=== PATIENT | female | born 1960 | race Caucasian/White ===

== ENCOUNTER → 2018-02-07 09:00 | Outpatient (CLI) | payer BC, SELFPAY ==
--- NOTE | 2018-02-07 09:03 | RAD_ITS ---
STUDY: X-RAY - LEFT KNEE REASON FOR EXAM: Female, 57 years old. Bilateral knee pain. TECHNIQUE: 4 view(s) of the knee. COMPARISON: None. FINDINGS: Normal visualized distal femur. Normal visualized proximal tibia and fibula. Normal proximal tibiofibular articulation. There is moderate arthrosis at the medial, lateral and patellofemoral compartments. There is lateral subluxation of patella. The soft tissue structures are unremarkable. RAD/Knee 4 or More Views IMPRESSION: Tricompartmental arthrosis as described. Electronically Signed: Cheng Oliver MD at 15:57 EDT , Service support ,
--- NOTE | 2018-02-07 09:03 | RAD_ITS ---
STUDY: X-RAY - RIGHT KNEE REASON FOR EXAM: Female, 57 years old. Bilateral knee pain. TECHNIQUE: 4 view(s) of the knee. COMPARISON: None. FINDINGS: Normal visualized distal femur. Normal visualized proximal tibia and fibula. Normal proximal tibiofibular articulation. There is moderate arthrosis of the medial and lateral compartments of the knee. There is lateral subluxation and tilt of the patella with moderate arthrosis of the patellofemoral compartment. The soft tissue structures are unremarkable. RAD/Knee 4 or More Views IMPRESSION: Tricompartmental arthrosis as described. Electronically Signed: Cheng Oliver MD at 15:56 EDT , Service support ,
== END ==
PROVIDERS: Family Provider Family Medicine; PCP Family Medicine; Visit Provider Physician Assistant
DX: M25.561 Pain in right knee (principal); M25.562 Pain in left knee
CPT/HCPCS: 73564

== ENCOUNTER 2018-03-15 16:00 | Outpatient (RCR) | payer BC, SELFPAY ==
--- NOTE | 2018-02-07 11:52 | HP.PTEVAL_ITS ---
Patient's Visit Information SHERRY ACUNA is a 57 year old F referred to Physical Therapy by Lourdes Parker DO with a diagnosis of NAVEED KNEE PAIN AND OA.. Date of Evaluation: 02/07/18 Physical Therapist: Fe Lara - Visit Plan Frequency: 2-3x /Week Duration: 4-6 Weeks Plan: AQUATIC THERAPY FOR PAIN RELEIF, POSTURE CORRECTION/STRENGTHENING, INSTRUCTION IN APPROPRIATE BODY MECHANICS AND ACTIVITY MODIFICATIONS. DLS WITH A NEUTRAL SPINE. NAVEED LE ROM, STRETCHING AND STRENGTHENING. HEP INSTRUCTION. PATIENT IS A MEMBER AT THE [employer] AND HAS TAKEN AQUATIC CLASSES. (TAKING HISTORY OF RA AND SCIATICA INTO CONSIDERATION). 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 Disability: NO. Present symptoms: NAVEED KNEE PAIN/BURNING. Present since: A FEW YEARS AGO. HAS GOT WORSE IN THE LAST FEW MONTHS. Pain Scale: WORST 7/10, LEAST 1/10. Currently: 1/10. Commenced as a result of: NO APPARENT REASON. Symptoms at onset: ABOUT THE SAME. Worse: PROLONGED STANDING, WALKING, SOMETIMES BENDING , PUTTING WEIGHT ON THEM - HARD TO GET OFF THE FLOOR. Better: IBUPROFEN, ELEVATING THEM, SOMETIMES ICE AND SITTING. Disturbed sleep: YES. Previous history/Previous treatment: INJECTIONS A FEW YEARS AGO AND DIDN'T SEEM TO HELP MUCH. Gait: DISTANCE LIMITED. MY STRIDE IS SHORTER AND I FEEL LIKE I WOBBLE . THE MORE SHE WALKS THE MORE PAIN SHE GETS. NO AD'S. Accidents: NO. Unexplained weight loss: NO. Imaging: YES - NAVEED KNEE X-RAYS TODAY AND SEEN BY DR. PARKER TODAY. PATIENT REPORTS DR. PARKER TOLD HER THERE IS SOME PATELLA MALALIGNMENT AND SOME WEAR AND TEAR BUT NO SURGERY RECOMMENDED. PT ORDERED TODAY. TOPICAL ANTIINFLAMMATORY ORDERED AND SUGGESTED TO WAIT ON INJECTIONS UNTIL STARTING PT. PMH: *RA, ORIF FOR POST TIBIBIAL TENDON RUPTURE LEFT - SOME HARDWARE REMOVAL ABOUT A YEAR AGO. HTN. NAVEED CTR'S. HISTORY OF SCIATICA TREATED WITH PT AND CHIROPRACTOR. NO BACK SURGERY OR INJECTIONS. OTHER: DR. PARKER GAVE PATIENT SOME HOME EX'S - PATIENT TO BRING NEXT VISIT. PATIENT REPORTS SHE GETS INTERMITTENT PAIN DOWN THE BACK OF BOTH OF HER LEGS AND SHE STATES HER THIGHS GET TIGHT. - Objective Sitting/Standing Posture: POOR. Other Observations: INDEP TRANSFER SIT TO STAND WITHOUT UE ASSIST. INDEP GAIT INTO PT WITHOUT ANY ASSISTIVE DEVICES WADDLING SIDE TO SIDE BUT NO LOB. DECREASED CADANCE. Motor deficit: NAVEED LE'S 5/5 WITH MMT'ING EXCEPT HIPS 4/5. Sensory deficit: NO. ROM deficit: FULL RIGHT KNEE EXT TO 108 DEG FLEX. FULL LEFT KNEE EXT TO 115 DEG FLEX. PATIENT HAS TIGHT HIP FLEXORS, QUADS, HS'S AND GASTROC-SOLEUS COMPLEX'S. Dural Signs: NAVEED LE'S ARE NEGATIVE. Lumbar mvmt loss: flex - MIN. ext - MIN. R SG - MIN. L SG - MIN. PATIENT DENIES ANY INCREASED PAIN WITH LUMBAR ROM TESTING. Core strength: POOR. Palpation: TENDERNESS WITH PALPATION OF NAVEED PATELLAR REGIONS. LATERAL TRACKING PATELLA NAVEED. - Goals Goal 1:: DECREASE C/O NAVEED KNEE PAIN Goal Time Frame: 4-6 Weeks Goal 2:: IMPROVE STANDING, WALKING, ADL, WORK AND SLEEP FUNCTION Goal Time Frame: 4-6 Weeks Goal 3:: INSTRUCT IN PROPHYLAXIS Goal Time Frame: 4-6 Weeks - Rehabilitation Potential Rehabilitation Potential: Good - Anticipated Interventions Patient/Client Instruction: Educate patient on: Condition, Plan of Care, Risk Factors, Benefits of Fitness Program For the Purpose of:: To improve self management Therapeutic Exercise to Include: Strength training, Body mechanics, Postural training, Flexibilty training, Gait and locomotor training, In an aquatic setting, Active ROM, Dynamic Lumbar Stabilization For the Purpose of:: To decrease pain, To decrease swelling/inflammation, To increase ROM, To improve muscle performance and motor function, To improve ability to perform ADL's, To increase tolerance to activity/condition/position, To improve ability of physical actions for home/community/work/leisure, To improve gait and locomotor functions Thank you for the opportunity to evaluate your patient. For Medicare and Medicare HMO plans, please review the plan of care and approve it. It will need to be FAXED BACK to us at [phone] for Medicare purposes. Please let me know if there are questions or concerns regarding this plan of care. Physician Signature: Date:
--- NOTE | 2018-03-15 16:38 | HP.PTDCSUM_ITS ---
HP - PT D/C Summary It has been my pleasure to treat SHERRY ACUNA under orders from Lourdes Parker DO, for the diagnosis of NAVEED KNEE PAIN AND OA. for a total of 10 visit(s). Discharge Date: 03/15/18 Please see the following information for a summary of their discharge status. - Subjective Subjective: PATIENT REPORTS SHE IS GETTING BETTER. SHE REPORTS SHE DOESN'T FEEL THE PAIN IN HER KNEES LIKE SHE DID BEFORE SHE STARTED PT BUT SHE CAN'T STAND VERY LONG OR WALK LONG DISTANCES. PATIENT REPORTS SHE IS BACK TO WORK AND VERY BUSY/ACTIVE. SHE REPORTS SHE THINKS PHYSICAL THERAPY AND THE TOPICAL MEDICATION DR. PARKER PRESCRIBED ARE HELPING. SHE REPORTS SHE LOVED SEEING MERRY AND SHE LEARNED A LOT. SHE REPORTS SHE WOULD LIKE TO CONTINUE ON HER OWN AT THIS POINT WITH HER MEMBERSHIP AT THE [facility]. - Pain R knee Pain Intensity (Out of 10): 2 L knee Pain Intensity (Out of 10): 0 - Overall Improvement % Improvement: 50 - Objective Objective/Function: ALL GOALS MET. PATIENT IS REPORTING MUCH LESS PAIN, HER LEFS SCORE HAS IMPROVED FROM 32 TO 42 AND SHE IS INDEP WITH A POOL EX PROGRAM THAT SHE PLANS TO CONTINUE AT THE [facility]. SHE CONTINUES TO HAVE CORE AND HIP WEAKNESS THAT ARE BEING ADRESSED IN HER EX PROGRAM. THERE ARE HOWEVER NO SIGNIFICANT CHANGES IN OTHER TESTS AND MEASURES SINCE INITIAL EVAL. - Goals Goal 1:: DECREASE C/O NAVEED KNEE PAIN Goal Progress: Goal Met Goal 2:: IMPROVE STANDING, WALKING, ADL, WORK AND SLEEP FUNCTION Goal Progress: Goal Met Goal 3:: INSTRUCT IN PROPHYLAXIS Goal Progress: Goal Met - Plan Plan: D/C TO INDEP WATER EX PROGRAM AT THIS TIME AT PATIENTS REQUEST. - D/C Information If there are questions or concerns regarding this patient's physical therapy, please feel free to call me at [phone]. Thank you for the referral of this patient. Sincerely, Fe Lara
== END 2018-03-15 19:00 | disposition home or self-care (01) ==
LOC: PT 16:00
PROVIDERS: Family Provider Nurse Practitioner Family; PCP Nurse Practitioner Family; Visit Provider Orthopaedic Surgery
DX: M25.562 Pain in left knee (principal); M25.561 Pain in right knee; M17.0 Bilateral primary osteoarthritis of knee
CPT/HCPCS: 97113; 97162; 97164

== ENCOUNTER → 2020-02-26 09:39 | Outpatient (CLI) | payer BC, SELFPAY ==
[2020-02-26 09:38] VITALS: BMI 53.8
--- NOTE | 2020-02-26 09:40 | RAD_ITS ---
STUDY: X-RAY - LEFT KNEE REASON FOR EXAM: Left knee pain. TECHNIQUE: 4 view(s) of the knee. COMPARISON: Radiographs 02/07/2018. FINDINGS: Normal visualized distal femur. Normal visualized proximal tibia and fibula. Normal proximal tibiofibular articulation. There is moderate joint space narrowing of the medial femorotibial compartment, mildly increased since the prior study. There are marginal osteophytes without joint space narrowing of the lateral femorotibial compartment. There are marginal osteophytes and moderate joint space narrowing of the patellofemoral articulation similar to the prior study. The soft tissue structures are unremarkable. RAD/Knee 4 or More Views IMPRESSION: Arthrosis of the medial femorotibial and patellofemoral compartments. Electronically Signed: Bib Rosario MD at 10:40 EDT Tel , Service support ,
--- NOTE | 2020-02-26 09:40 | RAD_ITS ---
STUDY: X-RAY - RIGHT KNEE REASON FOR EXAM: Right knee pain. TECHNIQUE: 4 view(s) of the knee. COMPARISON: Radiographs 02/07/2018. FINDINGS: Normal visualized distal femur. Normal visualized proximal tibia and fibula. Normal proximal tibiofibular articulation. There is severe joint space narrowing of the medial femorotibial compartment, mildly increased since the prior study. There are marginal osteophytes of the lateral femorotibial compartment without joint space narrowing. There are marginal osteophytes and moderate joint space narrowing of the patellofemoral articulation. The soft tissue structures are unremarkable. RAD/Knee 4 or More Views IMPRESSION: Arthrosis of the medial femorotibial and patellofemoral compartments. Electronically Signed: Bib Rosario MD at 10:30 EDT Tel , Service support ,
== END ==
PROVIDERS: PCP Nurse Practitioner Family; Referring Provider Orthopaedic Surgery; Visit Provider Orthopaedic Surgery
DX: M25.561 Pain in right knee (principal); M25.562 Pain in left knee
CPT/HCPCS: 73564

== ENCOUNTER 2020-03-19 16:00 | Outpatient (RCR) | payer BC, SELFPAY ==
--- NOTE | 2020-01-14 10:17 | HP.PTEVAL_ITS ---
Patient's Visit Information SHERRY ACUNA is a 59 year old F referred to Physical Therapy by SHAWN GONZALEZ with a diagnosis of LOW BACK AND HIP PAINS. Date of Evaluation: 01/14/20 Physical Therapist: Sarthak Perea, PT, Cert MDT, OCS - Visit Plan Frequency: 2x /Week Duration: 4 Weeks Plan: PT INTERVENTIONS POSTURAL EX'S,DLS ABD/BACK,INGRID EX'S,DLS ,HIP STRENGTHENING. MODLALTIES NEEDED - Subjective This 59 y/o female presents to physical therapy with LOW BACK AND HIP PAIN. Paient has had lumbar and hip pain for 2 months which has been worse. Patient has h/o RA undercare with methotraxate and humari. Seen another RA DR in [facility] in July took off all MEDS. Did x-rays DDD hip/knee. Patient ses MD 3-4months. Patient feeling some better being off MEDS. Patient is trying to loss weight. Patient located lumbar pain right buttuck. Aggraveting standing 10min,walking 20min ,lifting. Alleviating factors sitting ,resting,AM . Patient better on the move but end day worse. Coughing/sneezing -.Bowel/bladder-. Patient has c/o parathesia/tingling right leg . Patient as had PT. Patient symptoms affects QOL and function/ADLS'. SOCIAL: . VOCATION: Teacher - Pain Bilateral Ankle Pain Intensity (Out of 10): 5 Pain Intensity Range: 10 - Objective POSTURE: mild foward posture,knee valgus. GAIT: reciprocal pattern antalgic lateral sway. NEURO: c/o parathesia/tingling thigh,reflexes intact L3-4,L4-5,L4-5,L5-S1. SYMMTRIES: align. PALAPTION: SI. LUMBAR ROM : flexion min loss,extension min loss,side glides min loss. MMT: quads/hams 4/5,hip flexion 4-/5,hip abd 4-/5,ankle 4/5. MUSCULAR ENDURANCE: POOR UNABLE - Special Tests L/S Slump test left side: Negative L/S Slump test right side: Negative L/S Left Straight Leg Raise: Negative L/S Right Straight Leg Raise: Negative Lumbar Standing: Flexion - Mechanical Response: No effect Lumbar Standing: Flexion - Symptoms During Testing: No effect Lumbar Standing: Flexion - Symptoms After Testing: No effect Lumbar Standing: Extension - Mechanical Response: No effect Lumbar Standing: Extension - Symptoms During Testing: Increases Lumbar Standing: Extension - Symptoms After Testing: No worse Lumbar Standing: Right Side Glides - Mechanical Response: No effect Lumbar Standing: Right Side Madison - Symptoms During Testing: No effect Lumbar Standing: Right Side [place] - Symptoms After Testing: No effect Lumbar Standing: Left Side [place] - Mechanical Response: No effect Lumbar Standing: Left Side [place] - Symptoms During Testing: No effect Lumbar Standing: Left Side [place] - Symptoms After Testing: No effect Lumbar Lying: Flexion - Mechanical Response: No effect Lumbar Lying: Flexion - Symptoms During Testing: No effect Lumbar Lying: Flexion - Symptoms After Testing: No effect Lumbar Lying: Extension - Mechanical Response: No effect Lumbar Lying: Extension - Symptoms During Testing: Decreases Lumbar Lying: Extension - Symptoms After Testing: Better - Goals Goal 1:: Patient to be I with HEP. Goal Time Frame: 4-6 Weeks Goal 2:: Patient improve posture /body mechanics Goal Time Frame: 4-6 Weeks Goal 3:: Patient decrease lumbar pain by 50% or > to improve function with walking and standing Goal Time Frame: 4-6 Weeks Goal 4:: Patient to improve lumbar ROM for function of recovery Goal Time Frame: 4-6 Weeks Goal 5:: Patient improve muscular endaurance for core to fair+. Goal Time Frame: 4-6 Weeks Goal 6:: Patient to improve back owestry score by 5 points or > to improve QOL Goal Time Frame: 4-6 Weeks - Rehabilitation Potential Physical Therapy Diagnosis: This patient has low back pain with weakness trunk stabilizers and with hip weakness causing pain with walking and standing thus benifit from skilled PT Rehabilitation Potential: Good - Anticipated Interventions Patient/Client Instruction: Educate patient on: Condition, Plan of Care For the Purpose of:: To decrease pain, To increase ROM, To improve muscle performance and motor function, To improve ability to perform ADL's, To increase tolerance to activity/condition/position, To improve ability of physical actions for home/community/work/leisure, To improve health of tissue, To decrease soft tissue restriction, To increase flexibility/ROM, To reduce risk of recurrence, To improve ability to perform tasks related to life management Therapeutic Exercise to Include: Strength training, Body mechanics, Postural training, Flexibilty training, Dynamic Lumbar Stabilization, Ingrid Exercises For the Purpose of:: To decrease pain, To increase ROM, To improve muscle performance and motor function, To improve ability to perform ADL's, To increase tolerance to activity/condition/position, To improve ability of physical actions for home/community/work/leisure, To improve health of tissue, To decrease soft tissue restriction, To increase flexibility/ROM, To improve ability to perform tasks related to life management TENS: Yes IF ES: Yes Cryotherapy (ice pack, ice massage): Yes Thermo therapy (hot pack): Yes Ultrasound (thermal/non thermal): Yes For the Purpose of:: To decrease pain, To increase ROM, To improve health of tissue, To decrease soft tissue restriction Thank you for the opportunity to evaluate your patient. For Medicare and Medicare HMO plans, please review the plan of care and approve it. It will need to be FAXED BACK to us at [phone] for Medicare purposes. For Medicare only, by signing this I certify the plan of care. Please let me know if there are questions or concerns regarding this plan of care. Physician Si gnature: Date:
--- NOTE | 2020-06-23 08:58 | HP.PT.NRP ---
SHERRY ACUNA was seen in my office for initial evaluation on 01/14/20. The following Plan of Care was established for this patient: Initial Frequency: 2x /Week Initial Duration: 4 Weeks Patient/Client Instruction: Educate patient on: Condition, Plan of Care For the Purpose of:: To decrease pain, To increase ROM, To improve muscle performance and motor function, To improve ability to perform ADL's, To increase tolerance to activity/condition/position, To improve ability of physical actions for home/community/work/leisure, To improve health of tissue, To decrease soft tissue restriction, To increase flexibility/ROM, To reduce risk of recurrence, To improve ability to perform tasks related to life management Therapeutic Exercise to Include: Strength training, Body mechanics, Postural training, Flexibilty training, In an aquatic setting, Dynamic Lumbar Stabilization, Clay Exercises For the Purpose of:: To decrease pain, To increase ROM, To improve muscle performance and motor function, To improve ability to perform ADL's, To increase tolerance to activity/condition/position, To improve ability of physical actions for home/community/work/leisure, To improve health of tissue, To decrease soft tissue restriction, To increase flexibility/ROM, To improve ability to perform tasks related to life management TENS: Yes IF ES: Yes Cryotherapy (ice pack, ice massage): Yes Thermo therapy (hot pack): Yes Ultrasound (thermal/non thermal): Yes For the Purpose of:: To decrease pain, To increase ROM, To improve health of tissue, To decrease soft tissue restriction This patient was last seen in our office 03/19/20. Pertinent comments regarding their Physical therapy will appear below: Patient was seen for PT for knee and back pain. Patient was provide strengthening for hip and knees ,DLS abd/back along with aquatic therapy pprogram to do ex's on own in [place] thus is d/c. At this point I will be discontinuing this patient from physical therapy. I would be happy to see this patient again in the future if found appropriate by the physician. Thank you! Sarthak Perea, PT, Cert MDT, OCS
== END 2020-03-19 19:00 | disposition home or self-care (01) ==
LOC: PT 16:00
PROVIDERS: PCP Nurse Practitioner Family
DX: M17.0 Bilateral primary osteoarthritis of knee (principal); M54.5 Low back pain; M25.559 Pain in unspecified hip
CPT/HCPCS: 97014; 97110; 97113; 97162; 97530; G0283